=== PATIENT | female | born 1950 | race African-American/Black ===

== ENCOUNTER 2023-05-03 11:49 | Outpatient (CLI) | payer MEDICARE | END 2023-05-03 11:50 | disposition home or self-care (01) | LOC: CSHRAD 11:49 | PROVIDERS: ATTEND Internal Medicine Cardiovascular Disease | DX: M54.50 Low back pain, unspecified (principal); M25.561 Pain in right knee; M25.562 Pain in left knee; M16.0 Bilateral primary osteoarthritis of hip; M47.817 Spondylosis without myelopathy or radiculopathy, lumbosacral region; M17.0 Bilateral primary osteoarthritis of knee | CPT/HCPCS: 72110; 72170; 73521 ==